=== PATIENT | female | born 1995 | race Caucasian/White ===

== ENCOUNTER 2018-04-24 13:45 | Emergency (ER) | payer OTHER ==
[~2018-04-24] VITALS: Ht 157.5 cm; Wt 52.2 kg
== END 2018-04-24 15:52 | disposition home or self-care (01) ==
LOC: ER 13:45
DX: B08.4 Enteroviral vesicular stomatitis with exanthem (principal); J02.9 Acute pharyngitis, unspecified
CPT/HCPCS: 99281